=== PATIENT | female | born 1940 | race Caucasian/White ===

== ENCOUNTER 2018-06-06 17:53 | Emergency (ER) | payer OTHER ==
[~2018-06-06] VITALS: Ht 149.9 cm; Wt 102.1 kg
[2018-06-06 18:06] VITALS: Ht 149.9 cm; Wt 102.1 kg
[2018-06-06 19:04] LABS: BASOPHIL % 0.1 % (0-2); PLATELET COUNT 274 x10^3mcL (130-400); RED CELL DISTRIBUTION WIDTH 13.1 % (11.5-14.5)
[2018-06-06 19:26] LABS: CALCIUM 8.8 mg/dL (8.5-10.1); CHLORIDE SERUM 101 mmol/L (98-107); CREATININE SERUM 0.8 mg/dL (0.6-1.0); GLUCOSE SERUM 207 mg/dL (74-106); POTASSIUM SERUM 3.3 mmol/L (3.5-5.1); SODIUM SERUM 137 mmol/L (136-145)
[2018-06-06 19:31] LABS: ALBUMIN 3.6 g/dL (3.4-5.0); ALKALINE PHOSPHATASE 85 U/L (46-116); ALT/SGPT 22 U/L (14-59); AST/SGOT 30 U/L (15-37); BILIRUBIN TOTAL 0.7 mg/dL (0.20-1.00); TOTAL PROTEIN, SERUM 7.6 g/dL (6.4-8.2)
[2018-06-06] MEDS ORDERED: PROAIR HFA8.5 GM IH (20:09)
[2018-06-06] MEDS ORDERED: METFORMIN HYDR500 M1 PO (20:11)
[2018-06-06] MEDS ORDERED: BENAZEPRIL HYDR40 M1 PO (20:11)
[2018-06-06] MEDS ORDERED: AMLODIPINE BES2.5 M1 PO (20:12)
[2018-06-06 20:20] LABS: UA SPECIFIC GRAVITY >=1.030 (1.005-1.035); microscopic required? YES; urine erythrocyte 1+ (NEGATIVE)
[2018-06-06 22:10] VITALS: BP 150/73
== END 2018-06-06 22:10 | disposition short-term general hospital (02) ==
LOC: ED 17:53 → DU 19:52 → ED 19:52
PROVIDERS: Emergency Medicine
DX: G46.4 Cerebellar stroke syndrome (principal); I21.4 Non-ST elevation (NSTEMI) myocardial infarction; D72.829 Elevated white blood cell count, unspecified; I10 Essential (primary) hypertension; E11.9 Type 2 diabetes mellitus without complications; R19.7 Diarrhea, unspecified
CPT/HCPCS: 82962; 83880; J1956; J7030; Q0092

== ENCOUNTER 2018-10-26 09:39 | Emergency (ER) | payer OTHER ==
[~2018-10-26] VITALS: Ht 147.3 cm; Wt 78.5 kg
[~2018-10-26 09:39] MED LIST: AMLODIPINE BES2.5 M1 PO; BENAZEPRIL HYDR40 M1 PO; METFORMIN HYDR500 M1 PO; PROAIR HFA8.5 GM IH
[2018-10-26 09:53] VITALS: Ht 147.3 cm; Wt 78.5 kg
[2018-10-26 12:03] VITALS: BP 148/44
== END 2018-10-26 12:10 | disposition home or self-care (01) ==
LOC: ED 09:39
DX: J20.9 Acute bronchitis, unspecified (principal); M54.40 Lumbago with sciatica, unspecified side; I10 Essential (primary) hypertension; E11.9 Type 2 diabetes mellitus without complications
CPT/HCPCS: J1885; J7512; J7620; Q0092